=== PATIENT | male | born 1965 | race African-American/Black ===

== ENCOUNTER 2018-09-15 17:31 | Inpatient (IN) | payer MEDICAID ==
[~2018-09-15] VITALS: Ht 170.2 cm; Wt 93.0 kg
[2018-09-15 22:10] LABS: BASOPHILS % 0.6 % (0.0-2.0); EOSINOPHILS % 1.9 % (0.0-5.0); HEMATOCRIT. 33.1 % (42.0-52.0); HEMOGLOBIN. 10.6 g/dL (14.0-18.0); LYMPHOCYTES % 20.9 % (20.0-50.0); MEAN CORPUSCULAR HEMOGLOBIN 30.1 pg (28.0-32.0); MEAN CORPUSCULAR VOLUME 94.2 fL (80.0-94.0); MEAN PLATELET VOLUME 9.9 fl (7.4-10.4); MONOCYTES % 12.6 % (2.0-8.0); PLATELET 112 x1000/uL (130-400); RED BLOOD CELL COUNT 3.51 mill/uL (4.7-6.1); RED CELL DISTRIBUTION WIDTH 16.9 % (11.6-14.6)
[2018-09-15 22:15] LABS: CHLORIDE 97 mEq/L (98-107)
[2018-09-15] MEDS ORDERED: ATENOLOL 25MG TABLET PO ONE (23:00)
[2018-09-15] MEDS ORDERED: INSULIN REGULAR (HUMULIN R) UD 100 UNITS/ML SYR IV ONE (23:30)
[2018-09-15] MEDS ORDERED: INSULIN REGULAR (HUMULIN R) 300UNITS/3ML IV NR (23:45)
[2018-09-16] MEDS ORDERED: ATENOLOL 25MG TABLET PO ONE (06:00)
[2018-09-16] MEDS ORDERED: CHOL100022 MT (07:03)
[2018-09-16] MEDS ORDERED: OMEG-34 PO (07:03)
[2018-09-16] MEDS ORDERED: ATEN-42 PO (07:03)
[2018-09-16] MEDS ORDERED: LORAZEPAM 2MG/ML CPJ IV PRN (07:15)
[2018-09-16] MEDS ORDERED: DOCUSATE SODIUM 100MG CAPSULE PO PRN (07:15)
[2018-09-16] MEDS ORDERED: IPRATROPIUM/ALBUTEROL 0.5-3(2.5)MG/3ML NEB INH PRN (07:15)
[2018-09-16] MEDS ORDERED: NA PHOS,M-B/NA PHOS,DI-BA ENEMA 118ML PR PRN (07:15)
[2018-09-16] MEDS ORDERED: MAGNESIUM/ALUMINUM HYDROXIDE/SIMETHICONE 30ML UDC PO PRN (07:15)
[2018-09-16] MEDS ORDERED: DIPHENHYDRAMINE 50MG/ML VIAL IV PRN (07:15)
[2018-09-16] MEDS ORDERED: HYDROCODONE/ACETAMINOPHEN 5/325MG TABLET PO PRN (07:15)
[2018-09-16] MEDS ORDERED: ONDANSETRON HCL 4MG/2ML INJ IV PRN (07:15)
[2018-09-16] MEDS ORDERED: ACETAMINOPHEN 325MG TABLET PO PRN (07:15)
[2018-09-16] MEDS ORDERED: GUAIFENESIN 200MG/10ML SUGAR FREE UDC PO PRN (07:15)
[2018-09-16] MEDS ORDERED: MORPHINE SULFATE 4 MG/ML CPJ (NOT FOR IM USE) IV PRN (07:30)
[2018-09-16 07:45] VITALS: BP 170/103
[2018-09-16] MEDS ORDERED: DEXTROSE 50% WATER 50ML SYRINGE IV PRN (07:45)
[2018-09-16 08:00] VITALS: BP 170/103
[2018-09-16] MEDS: ASPIRIN 81MG EC TABLET PO SCH (08:15)
[2018-09-16] MEDS: ENOXAPARIN 40MG/0.4ML SYR SUBCUT SCH (08:15)
[2018-09-16] MEDS: INSULIN LISPRO 100 UNITS/ML SUBCUT SCH ×4 (08:26→22:18)
[2018-09-16] MEDS: CLONIDINE 0.1MG TABLET PO PRN ×2 (09:09→18:06)
[2018-09-16 12:00] VITALS: BP 155/80
[2018-09-16] MEDS: BLOOD SUGAR DIAGNOSTIC STRIP TEST SCH ×3 (12:22→21:00)
[2018-09-16 16:00] VITALS: BP 161/101
[2018-09-16 20:00] VITALS: BP 160/89
[2018-09-17] VITALS: BP 189/86
[2018-09-17] MEDS: CLONIDINE 0.1MG TABLET PO PRN ×2 (00:10→07:58)
[2018-09-17 01:30] VITALS: BP 157/79
[2018-09-17 04:00] VITALS: BP 183/94
[2018-09-17] MEDS: BLOOD SUGAR DIAGNOSTIC STRIP TEST SCH (06:31)
[2018-09-17 07:02] LABS: CHLORIDE 99 mEq/L (98-107)
[2018-09-17 07:03] LABS: BASOPHILS % 0.7 % (0.0-2.0); EOSINOPHILS % 3.9 % (0.0-5.0); HEMOGLOBIN. 10.7 g/dL (14.0-18.0); MEAN CORPUSCULAR HEMOGLOBIN 30.2 pg (28.0-32.0); MEAN CORPUSCULAR VOLUME 92.9 fL (80.0-94.0); MEAN PLATELET VOLUME 10.3 fl (7.4-10.4); MONOCYTES % 12.8 % (2.0-8.0); NEUTROPHILS % 49.6 % (40.0-76.0); PLATELET 145 x1000/uL (130-400); RED BLOOD CELL COUNT 3.56 mill/uL (4.7-6.1); RED CELL DISTRIBUTION WIDTH 16.5 % (11.6-14.6)
[2018-09-17 07:14] LABS: LDL CHOLESTEROL 102 mg/dL (5-100)
[2018-09-17 07:16] LABS: T4 FREE 1.03 ng/dL (0.76-1.46)
[2018-09-17 07:17] LABS: HDL CHOLESTEROL 35 mg/dL (40-59)
[2018-09-17] MEDS: ENOXAPARIN 40MG/0.4ML SYR SUBCUT SCH (08:00)
[2018-09-17] MEDS: ASPIRIN 81MG EC TABLET PO SCH (08:00)
[2018-09-17] MEDS: INSULIN LISPRO 100 UNITS/ML SUBCUT SCH (08:02)
[2018-09-17 08:12] VITALS: BP 190/110
[2018-09-17 08:30] VITALS: BP 150/91
== END 2018-09-17 10:41 | disposition home or self-care (01) | DRG 53 ==
LOC: ER 17:33 → 6WST 23:54 → EDBEDREQ 23:56 → EDBEDREQTM 23:56 → ENRESERV 09-16 04:44
PROVIDERS: ADMIT Internal Medicine; ATTEND Internal Medicine
DX: G40.89 Other seizures (principal); I13.2 Hypertensive heart and chronic kidney disease with heart failure and with stage 5 chronic kidney disease, or end stage renal disease; E11.22 Type 2 diabetes mellitus with diabetic chronic kidney disease; E11.65 Type 2 diabetes mellitus with hyperglycemia; N18.6 End stage renal disease; D64.9 Anemia, unspecified; I50.9 Heart failure, unspecified; Z79.899 Other long term (current) drug therapy; Z99.2 Dependence on renal dialysis
CPT/HCPCS: 36415; 71045; 80048; 80061; 82962; 83880; 84439; 84443; 84484; 93005; 96374; 99285; J1650; J1815